=== PATIENT | male | born 1990 | race Caucasian/White ===

== ENCOUNTER 2020-03-30 06:55 | Observation (INO) ==
--- NOTE | 2020-03-30 07:22 | DR.SOBA ---
HPI <ARISTIDES GUZMAN - Erick Filed: 04/01/20 08:41> Time Seen Time Seen by Provider: 03/30/20 07:14 Primary Care Physician Primary Care Physician: ARMIN Complaints Chief Complaint:: PT TESTED POSTIVIE FOR COVID WEDNESDAY AT THE [facility] IN [place]. SINCE THEN PT HAS HAD INCREASED SHORTNESS OF BREATH,FEVER ABDOMINAL PAIN, NAUSEA, VOMITING AND DIARRHEA. COVID-19 Coronavirus risk:travel/contact w/high risk person: Yes Has patient experienced Coronavirus symptoms: Yes Coronavirus symptoms experienced: Fever, Coughing and Shortness of Breath Reviewed Nurses Notes Reviewed: Yes Source History Provided: Patient Mode of Arrival Mode of Arrival: Ambulatory Timing Onset of Chief Complaint: 03/30/20 Context PE Risk Factors:: None Associated Signs and Symptoms Associated Signs and Symptoms: Cough If Cough Cough: Nonproductive PMH <ARISTIDES GUZMAN Erick Filed: 04/01/20 08:41> PMH Past Medical History: No Past Surgical History: Yes Surgical History: Appendectomy Family History History of Family Medical Conditions: No Social History Does patient currently use any type of tobacco product: No Have you used tobacco products in the last 12 months: No Type of Tobacco Use: None Does any household member use tobacco: No Alcohol Use: None Lives With: Family Lives Where: Home Travel Risk Coronavirus risk:travel/contact w/high risk person: Yes Has patient experienced Coronavirus symptoms: Yes Coronavirus symptoms experienced: Fever, Coughing and Shortness of Breath Infectious screening In the last 2 months have you had wt loss of >10#?: NO Have you had fever, night sweats or hemotysis?: No Have you traveled outside the country in the last 6 months?: No Isolation: Standard ROS <ARISTIDES GUZMAN - Erick Filed: 04/01/20 08:41> Review of Systems Constitutional: Fever and Malaise Eyes: No Symptoms Reported ENTM: No Symptoms Reported Respiratoy: Non-Productive Cough and Short of Breath Cardiovascular: No Symptoms Reported Gastrointestinal/Abdominal: Diarrhea, Nausea and Vomiting Genitourinary: No Symptoms Reported Neurological: No Symptoms Reported Musculoskeletal: No Symptoms Reported Integumentary: No Symptoms Reported Hematologic/Lymphatic: No Symptoms Reported Endocrine: No Symptoms Reported Psychiatric: No Symptoms Reported All Other Systems: Reviewed and Negative PE <ARISTIDES GUZMAN - Erick Filed: 04/01/20 08:41> Vital Signs Vitals: Temperature 99.5 F Pulse Rate 100 Respiratory Rate 28 Blood Pressure 137/81 O2 Sat by Pulse Oximetry 96 General Limitations: No Limitations General Appearance: Alert and In No Apparent Distress Head Head Exam: Normal Inspection and Atraumatic Eyes Eye exam: Normal Appearance and EOMI ENT ENT Exam: Normal Exam and Normal Oropharynx Neck Neck Exam: Normal Inspection, Full ROM and Trachea Midline Chest Chest Inspection: Normal Inspection Respiratory Respiratory Exam: Normal Lung Sounds Bilat Respiratory Exam: Bilateral: Clear to Auscultation Cardiovascular Cardiovascular Exam: Normal Rhythm and Tachycardia Abdominal Exam Abdominal Exam: Normal Inspection, Normal Bowel Sounds and Soft Extremities Extremities Exam: Normal Inspection and Full ROM Back Back Exam: Normal Inspection and Full ROM Neurologic Neurological Exam: Alert, Oriented X3 and CN II-XII Intact Psychiatric Psychiatric Exam: Normal Affect and Flat Affect Skin Skin Exam: Warm, Dry, Intact and Normal Color <José Singh - Last Filed: 03/30/20 09:03> Vital Signs Vitals: Temperature 99.5 F Pulse Rate 100 Respiratory Rate 28 Blood Pressure 137/81 O2 Sat by Pulse Oximetry 96 <José Francisco - Last Filed: 03/30/20 09:03> Treatment Treatment: 899: Signed out care from Dr Guzman. CXR w/ multifocal infiltrate. Started Rocephin/ azithromycin. QTC < 500 ms. On NC at 3L. Pulse ox 86-87% on ra on arrival. Po2 on abg 82 on 3L c/w hypoxemia. D/w Dr Johnston whom agrees to admit. ROR <ARISTIDES GUZMAN - Last Filed: 04/01/20 08:41> Labs Reviewed Result Diagrams: 03/31/20 04:50 03/31/20 04:50 Laboratory: WBC 4.7 X10^3/uL (3.6-10.0) 03/30/20 07:46 RBC 5.22 X10^6/uL (4.7-6.0) 03/30/20 07:46 Hgb 15.1 g/dL (13.5-18.0) 03/30/20 07:46 Hct 43.8 % (42.0-54.0) 03/30/20 07:46 MCV 84.0 fL (80.0-100.0) 03/30/20 07:46 MCH 29.0 pg (27.0-34.0) 03/30/20 07:46 MCHC 34.5 g/dL (33.0-35.0) 03/30/20 07:46 RDW 13.8 % (11.6-16.5) 03/30/20 07:46 Plt Count 209 X10^3/uL (150.0-450.0) 03/30/20 07:46 MPV 8.8 fL (7.4-11.0) 03/30/20 07:46 Neut % (Auto) 73.3 % (42.0-75.0) 03/30/20 07:46 Lymph % (Auto) 19.9 % (21.0-51.0) L 03/30/20 07:46 [place] % (Auto) 6.3 % (0.0-13.0) 03/30/20 07:46 Eos % (Auto) 0.1 % (0.9-2.9) L 03/30/20 07:46 Baso % (Auto) 0.4 % (0.2-1.0) 03/30/20 07:46 Neut # (Auto) 3.5 x10^3/uL (2.2-4.8) 03/30/20 07:46 Lymph # (Auto) 0.9 X10^3/uL (1.3-2.9) L 03/30/20 07:46 [place] # (Auto) 0.3 x10^3/uL (0.3-0.8) 03/30/20 07:46 Eos # (Auto) 0.0 x10^3/uL (0.0-0.2) 03/30/20 07:46 Baso # (Auto) 0.0 X10^3/uL (0.0-0.1) 03/30/20 07:46 Absolute Nucleated RBC 0.0 /100WBC 03/30/20 07:46 Sample Site Rr 03/30/20 08:45 ABG pH 7.510 (7.35-7.45) H 03/30/20 08:45 ABG pCO2 29.0 mmHg (35.0-45.0) L 03/30/20 08:45 ABG pO2 82.0 mmHg (80.0-100.0) 03/30/20 08:45 ABG HCO3 23.1 mmol/L (22-26) 03/30/20 08:45 ABG O2 Saturation 97.0 % (90-100) 03/30/20 08:45 ABG Base Excess 0.9 mmol/L (-2.0-2.0) 03/30/20 08:45 Reyes Test Pos 03/30/20 08:45 A-a Gradient 110.0 mmHg 03/30/20 08:45 FiO2 32.0 03/30/20 08:45 Blood Gas Comments Tung well cb 03/30/20 08:45 Sodium 139 mmol/L (136-145) 03/30/20 07:46 Corrected Sodium 139 mmol/L (136-145) 03/30/20 07:46 Potassium 3.7 mmol/L (3.5-5.1) 03/30/20 07:46 Chloride 103 mmol/L (98-107) 03/30/20 07:46 Carbon Dioxide 25.7 mmol/L (21-32) 03/30/20 07:46 BUN 10 mg/dL (7-18) 03/30/20 07:46 Creatinine 0.89 mg/dL (0.70-1.30) 03/30/20 07:46 Est GFR (MDRD) Af Amer > 60 (>60) 03/30/20 07:46 Est GFR (MDRD) Non-Af > 60 (>60) 03/30/20 07:46 Glucose 117 mg/dL (65-99) H 03/30/20 07:46 Calcium 8.3 mg/dL (8.5-10.1) L 03/30/20 07:46 Corrected Calcium 8.9 mg/dL (8.5-10.1) 03/30/20 07:46 Total Bilirubin 0.60 mg/dL (0.2-1.0) 03/30/20 07:46 AST 60 Units/L (15-37) H 03/30/20 07:46 ALT 82 Units/L (12-78) H 03/30/20 07:46 Alkaline Phosphatase 80 Units/L (46-116) 03/30/20 07:46 Creatine Kinase 88 Units/L (39-308) 03/30/20 07:46 CK-MB (CK-2) < 1.0 ng/mL (0-4.0) 03/30/20 07:46 CK/CKMB % Calc 1.1 % (<4) 03/30/20 07:46 Troponin I < 0.02 ng/mL (0-1.5) 03/30/20 07:46 Total Protein 7.9 g/dL (6.4-8.2) 03/30/20 07:46 Albumin 3.2 g/dL (3.4-5.0) L 03/30/20 07:46 Globulin 4.7 g/dL (2.5-4.5) H 03/30/20 07:46 Albumin/Globulin Ratio 0.7 Ratio (1.1-2.1) L 03/30/20 07:46 EKG Rate: 106 Robbins: Normal Rhythm: ST Block: None Hypertrophy: None ST: Inf (old inferior mi) and Nonsp <José Singh - Last Filed: 03/30/20 09:03> Labs Reviewed Laboratory: WBC 4.7 X10^3/uL (3.6-10.0) 03/30/20 07:46 RBC 5.22 X10^6/uL (4.7-6.0) 03/30/20 07:46 Hgb 15.1 g/dL (13.5-18.0) 03/30/20 07:46 Hct 43.8 % (42.0-54.0) 03/30/20 07:46 MCV 84.0 fL (80.0-100.0) 03/30/20 07:46 MCH 29.0 pg (27.0-34.0) 03/30/20 07:46 MCHC 34.5 g/dL (33.0-35.0) 03/30/20 07:46 RDW 13.8 % (11.6-16.5) 03/30/20 07:46 Plt Count 209 X10^3/uL (150.0-450.0) 03/30/20 07:46 MPV 8.8 fL (7.4-11.0) 03/30/20 07:46 Neut % (Auto) 73.3 % (42.0-75.0) 03/30/20 07:46 Lymph % (Auto) 19.9 % (21.0-51.0) L 03/30/20 07:46 [place] % (Auto) 6.3 % (0.0-13.0) 03/30/20 07:46 Eos % (Auto) 0.1 % (0.9-2.9) L 03/30/20 07:46 Baso % (Auto) 0.4 % (0.2-1.0) 03/30/20 07:46 Neut # (Auto) 3.5 x10^3/uL (2.2-4.8) 03/30/20 07:46 Lymph # (Auto) 0.9 X10^3/uL (1.3-2.9) L 03/30/20 07:46 [place] # (Auto) 0.3 x10^3/uL (0.3-0.8) 03/30/20 07:46 Eos # (Auto) 0.0 x10^3/uL (0.0-0.2) 03/30/20 07:46 Baso # (Auto) 0.0 X10^3/uL (0.0-0.1) 03/30/20 07:46 Absolute Nucleated RBC 0.0 /100WBC 03/30/20 07:46 Sample Site Rr 03/30/20 08:45 ABG pH 7.510 (7.35-7.45) H 03/30/20 08:45 ABG pCO2 29.0 mmHg (35.0-45.0) L 03/30/20 08:45 ABG pO2 82.0 mmHg (80.0-100.0) 03/30/20 08:45 ABG HCO3 23.1 mmol/L (22-26) 03/30/20 08:45 ABG O2 Saturation 97.0 % (90-100) 03/30/20 08:45 ABG Base Excess 0.9 mmol/L (-2.0-2.0) 03/30/20 08:45 Reyes Test Pos 03/30/20 08:45 A-a Gradient 110.0 mmHg 03/30/20 08:45 FiO2 32.0 03/30/20 08:45 Blood Gas Comments Tung well cb 03/30/20 08:45 Sodium 139 mmol/L (136-145) 03/30/20 07:46 Corrected Sodium 139 mmol/L (136-145) 03/30/20 07:46 Potassium 3.7 mmol/L (3.5-5.1) 03/30/20 07:46 Chloride 103 mmol/L (98-107) 03/30/20 07:46 Carbon Dioxide 25.7 mmol/L (21-32) 03/30/20 07:46 BUN 10 mg/dL (7-18) 03/30/20 07:46 Creatinine 0.89 mg/dL (0.70-1.30) 03/30/20 07:46 Est GFR (MDRD) Af Amer > 60 (>60) 03/30/20 07:46 Est GFR (MDRD) Non-Af > 60 (>60) 03/30/20 07:46 Glucose 117 mg/dL (65-99) H 03/30/20 07:46 Calcium 8.3 mg/dL (8.5-10.1) L 03/30/20 07:46 Corrected Calcium 8.9 mg/dL (8.5-10.1) 03/30/20 07:46 Total Bilirubin 0.60 mg/dL (0.2-1.0) 03/30/20 07:46 AST 60 Units/L (15-37) H 03/30/20 07:46 ALT 82 Units/L (12-78) H 03/30/20 07:46 Alkaline Phosphatase 80 Units/L (46-116) 03/30/20 07:46 Creatine Kinase 88 Units/L (39-308) 03/30/20 07:46 CK-MB (CK-2) < 1.0 ng/mL (0-4.0) 03/30/20 07:46 CK/CKMB % Calc 1.1 % (<4) 03/30/20 07:46 Troponin I < 0.02 ng/mL (0-1.5) 03/30/20 07:46 Total Protein 7.9 g/dL (6.4-8.2) 03/30/20 07:46 Albumin 3.2 g/dL (3.4-5.0) L 03/30/20 07:46 Globulin 4.7 g/dL (2.5-4.5) H 03/30/20 07:46 Albumin/Globulin Ratio 0.7 Ratio (1.1-2.1) L 03/30/20 07:46 Opioid <ARISTIDES LIZBETH - Last Filed: 04/01/20 08:41> Opioid Risk Tool Age (Aristides box if 16-45): Yes History of Preadolescent Sexual Abuse: No Total: 1 Total Score Risk Category: Low Risk Copyright: Filipe CARLSON predicting aberrant behaviors <José Singh - Last Filed: 03/30/20 09:03> Opioid Risk Tool Total: 0 Total Score Risk Category: Low Risk <ARISTIDES GUZMAN - Last Filed: 04/01/20 08:41> Diagnosis Discharge Problem: Pneumonia due to 2019-nCoV, Hypoxemia Instructions Instructions: Hypoxia Weakness Fever, Adult, [id number] Forms: Excuse From Work or School Precautions for COVID19 Patient Portal Social Distancing
[2020-03-30] MEDS ORDERED: NS 1/2 1000 ML IV 1,000 ML IV ONE (07:32)
[2020-03-30] MEDS ORDERED: XOPENEX 1.25 MG/3 ML NEBULE NEB ONE ×2 (07:45→08:20)
[2020-03-30] MEDS ORDERED: ZOFRAN INJ 4 MG VIAL IVP ONE (07:58)
[2020-03-30] MEDS ORDERED: NS 1000 ML 1,000 ML IV SCH ×2 (08:00→13:00)
[2020-03-30] MEDS ORDERED: NS 1/2 1000 ML IV 1,000 ML IV SCH (08:00)
[2020-03-30 08:03] LABS: BASOPHILS % (AUTO) 0.4 % (0.2-1.0); EOSINOPHILS % (AUTO) 0.1 % (0.9-2.9); HEMATOCRIT 43.8 % (42.0-54.0); HEMOGLOBIN 15.1 g/dL (13.5-18.0); LYMPHOCYTES # (AUTO) 0.9 X10^3/uL (1.3-2.9); LYMPHOCYTES % (AUTO) 19.9 % (21.0-51.0); MEAN CORPUSCULAR HGB CONC 34.5 g/dL (33.0-35.0); MEAN PLATELET VOLUME 8.8 fL (7.4-11.0); MONOCYTES # (AUTO) 0.3 x10^3/uL (0.3-0.8); MONOCYTES % (AUTO) 6.3 % (0.0-13.0); NEUTROPHILS # (AUTO) 3.5 x10^3/uL (2.2-4.8); NEUTROPHILS % (AUTO) 73.3 % (42.0-75.0); PLATELET COUNT 209 X10^3/uL (150.0-450.0); RED BLOOD COUNT 5.22 X10^6/uL (4.7-6.0); RED CELL DISTRIBUTION WIDTH 13.8 % (11.6-16.5); WHITE BLOOD COUNT 4.7 X10^3/uL (3.6-10.0)
--- NOTE | 2020-03-30 08:04 | RAD ---
HISTORYCough feverSTUDYAP chestCOMPARISONNoneFINDINGSThere is an extensive confluent airspace process involving most of the left lung, obscuring the left cardiac border. Heart size and contour cannot be evaluated. There is a linear infiltrate in the right midlung. Pulmonary volumes are generally reduced. No pneumothorax or large pleural effusion is evident.IMPRESSIONAsymmetric pulmonary infiltrates, extensive on the left, compatible with multifocal pneumonia.Electronically signed by: LUCY SANCHEZ (Mar 30, 2020 08:03:04)
[2020-03-30] MEDS ORDERED: ROCEPHIN VIAL 1 GRAM 1 G in NS 100 ML IV + SPIKE MINIBAG* 100 ML IV ONE (08:09)
[2020-03-30] MEDS ORDERED: ZITHROMAX INJ 500 MG VIAL 500 MG in NS 250 ML IV 250 ML IV NR (08:10)
[2020-03-30] MEDS ORDERED: NS 100 ML IV + SPIKE MINIBAG* 100 ML IV ONE (08:12)
[2020-03-30] MEDS ORDERED: ROCEPHIN VIAL 1 GRAM ONE (08:13)
[2020-03-30 08:17] LABS: BLOOD UREA NITROGEN 10 mg/dL (7-18); CALCIUM 8.3 mg/dL (8.5-10.1); CARBON DIOXIDE 25.7 mmol/L (21-32); CHLORIDE 103 mmol/L (98-107); COR NA(FOR HYPERGLY) 139 mmol/L (136-145); CREATININE 0.89 mg/dL (0.70-1.30); SODIUM 139 mmol/L (136-145); TROPONIN I < 0.02 ng/mL (0-1.5); eGFR NON BLACK RACES > 60 (>60)
[2020-03-30 08:21] LABS: ALANINE AMINOTRANSFERASE 82 Units/L (12-78); ALBUMIN 3.2 g/dL (3.4-5.0); ALKALINE PHOSPHATASE 80 Units/L (46-116); ASPARTATE AMINO TRANSFERASE 60 Units/L (15-37); CKMB % 1.1 % (<4); COR CA(FOR HYPOALB) 8.9 mg/dL (8.5-10.1); CREATINE KINASE 88 Units/L (39-308); CREATINE KINASE MB < 1.0 ng/mL (0-4.0); TOTAL PROTEIN 7.9 g/dL (6.4-8.2)
[2020-03-30] MEDS ORDERED: ZITHROMAX INJ 500 MG VIAL IV ONE (08:21)
[2020-03-30] MEDS ORDERED: NS 250 ML IV 250 ML IV ONE (08:21)
[2020-03-30 08:50] LABS: ABG ALLEN TEST POS; ABG BASE EXCESS 0.9 mmol/L (-2.0-2.0); ABG HCO3 23.1 mmol/L (22-26)
[2020-03-30] MEDS ORDERED: ASCORBIC ACID INJ MULTI-DOSE VIAL IM SCH (12:15)
[2020-03-30] MEDS ORDERED: REMDESIVIR (INVESTIGATIONAL DRUG GS-5734) 200 MG in NS 250 ML IV 250 ML IV NR (12:45)
[2020-03-30] MEDS: VITAMIN A PO SCH (13:26)
[2020-03-30] MEDS: CORTEF PO SCH ×3 (13:26→21:31)
[2020-03-30] MEDS: VITAMIN D (1.25MG) PO SCH (13:26)
[2020-03-30] MEDS: LOVENOX INJ 40 MG SYR SC SCH (13:27)
[2020-03-30] MEDS: THIAMINE HCL INJ IVP SCH ×2 (13:27→21:31)
[2020-03-30] MEDS: ZINC SULFATE PO SCH ×2 (13:27→21:33)
[2020-03-30] MEDS: PLAQUENIL PO SCH ×2 (13:28→21:33)
[2020-03-30 15:10] VITALS: BMI 45.4
[2020-03-30] MEDS ORDERED: NS 100 ML IV 100 ML IV ONE (15:34)
[2020-03-30] MEDS: NS 100 ML IV 100 ML with ASCORBIC ACID INJ MULTI-DOSE VIAL 1,500 MG IV SCH ×4 (15:36→21:33)
[2020-03-30] MEDS ORDERED: NS 100 ML IV 200 ML IV ONE (20:42)
[2020-03-31] MEDS: NS 100 ML IV 100 ML with ASCORBIC ACID INJ MULTI-DOSE VIAL 1,500 MG IV SCH ×4 (03:00→09:00)
[2020-03-31 05:24] LABS: BASOPHILS % (AUTO) 0.7 % (0.2-1.0); HEMATOCRIT 40.8 % (42.0-54.0); HEMOGLOBIN 13.7 g/dL (13.5-18.0); LYMPHOCYTES # (AUTO) 1.4 X10^3/uL (1.3-2.9); LYMPHOCYTES % (AUTO) 29.8 % (21.0-51.0); MEAN CORPUSCULAR HEMOGLOBIN 28.7 pg (27.0-34.0); MEAN CORPUSCULAR HGB CONC 33.7 g/dL (33.0-35.0); MEAN PLATELET VOLUME 8.9 fL (7.4-11.0); MONOCYTES # (AUTO) 0.4 x10^3/uL (0.3-0.8); MONOCYTES % (AUTO) 8.4 % (0.0-13.0); NEUTROPHILS # (AUTO) 2.9 x10^3/uL (2.2-4.8); NEUTROPHILS % (AUTO) 61.1 % (42.0-75.0); PLATELET COUNT 216 X10^3/uL (150.0-450.0); WHITE BLOOD COUNT 4.8 X10^3/uL (3.6-10.0)
[2020-03-31 05:40] LABS: ALANINE AMINOTRANSFERASE 66 Units/L (12-78); ALKALINE PHOSPHATASE 74 Units/L (46-116); ASPARTATE AMINO TRANSFERASE 43 Units/L (15-37); BLOOD UREA NITROGEN 8 mg/dL (7-18); CALCIUM 8.4 mg/dL (8.5-10.1); CARBON DIOXIDE 27.7 mmol/L (21-32); CHLORIDE 101 mmol/L (98-107); COR CA(FOR HYPOALB) 9.2 mg/dL (8.5-10.1); SODIUM 138 mmol/L (136-145); TOTAL PROTEIN 7.5 g/dL (6.4-8.2); eGFR NON BLACK RACES > 60 (>60)
[2020-03-31] MEDS: ZINC SULFATE PO SCH (08:56)
[2020-03-31] MEDS: LOVENOX INJ 40 MG SYR SC SCH (08:56)
[2020-03-31] MEDS: THIAMINE HCL INJ IVP SCH (08:57)
[2020-03-31] MEDS: VITAMIN D (1.25MG) PO SCH (08:59)
[2020-03-31] MEDS ORDERED: REMDESIVIR (INVESTIGATIONAL DRUG GS-5734) 100 MG in NS 250 ML IV 250 ML IV SCH (09:00)
[2020-03-31] MEDS: VITAMIN A PO SCH (09:00)
[2020-03-31] MEDS: CORTEF PO SCH (09:01)
[2020-03-31] MEDS ORDERED: NS 100 ML IV 100 ML IV ONE (09:04)
[2020-03-31] MEDS: PLAQUENIL PO SCH (09:06)
[2020-03-31 10:56] VITALS: BP 129/64
[2020-04-01] MEDS ORDERED: VITAMIN A PO SCH (09:00)
[2020-04-01] MEDS ORDERED: VITAMIN D3 25 mcg (1,000 UNITS) PO SCH (09:00)
== END 2020-03-31 12:15 | disposition home or self-care (01) ==
LOC: ICU 06:59 → ER 06:59 → ICU 12:49
PROVIDERS: ADMIT Obstetrics & Gynecology Obstetrics; ATTEND Obstetrics & Gynecology Obstetrics
DX: R11.2 Nausea with vomiting, unspecified; U07.1 COVID-19; R10.84 Generalized abdominal pain; J12.89 Other viral pneumonia; R19.7 Diarrhea, unspecified; R50.9 Fever, unspecified; R94.31 Abnormal electrocardiogram [ECG] [EKG]; R53.1 Weakness; J96.01 Acute respiratory failure with hypoxia
CPT/HCPCS: 36415; 36600; 71010; 71045; 80053; 82550; 82553; 82803; 84484; 85025; 93005; 94640; 96365; 96372; 96374; 96375; 99284; A4216; A4222; G0378; J0456; J0696; J1650; J3411; J7030; J7050